=== PATIENT | male | born 1995 | race African-American/Black ===

== ENCOUNTER 2023-01-27 16:10 | Emergency (ER) | payer MEDICAID ==
[~2023-01-27] VITALS: Ht 190.5 cm; Wt 65.8 kg
[2023-01-27] MEDS ORDERED: ALBU8.5H8 INH (16:42)
[2023-01-27] MEDS ORDERED: GUAI-671 PO ×3 (16:42→19:40)
[2023-01-27] MEDS ORDERED: PRED50TA PO (16:42)
[2023-01-27] MEDS ORDERED: predniSONE 20 MG TABLET ONE (16:43)
[2023-01-27] MEDS ORDERED: IPRATROPIUM NEB FS 0.5 MG/2.5 ML AMPUL.NEB ONE (16:47)
[2023-01-27] MEDS ORDERED: ALBUTEROL FS 2.5 MG/3 ML VIAL.NEB ONE (16:47)
[2023-01-27 16:52] VITALS: O2SAT 98
[2023-01-27] MEDS ORDERED: ONDANSETRON 4 MG TAB.RAPDIS ONE (16:59)
[2023-01-27] MEDS ORDERED: ALBUTEROL FS 2.5 MG/3 ML VIAL.NEB NEB ONE (17:00)
[2023-01-27] MEDS ORDERED: IPRATROPIUM NEB FS 0.5 MG/2.5 ML AMPUL.NEB NEB ONE (17:00)
[2023-01-27] MEDS ORDERED: ONDANSETRON 4 MG TAB.RAPDIS SL ONE (17:00)
[2023-01-27] MEDS ORDERED: predniSONE 20 MG TABLET PO ONE (17:00)
[2023-01-27 17:03] VITALS: O2SAT 100
[2023-01-27 17:10] VITALS: BP 110/81; TEMP 98.7; O2SAT 100
== END 2023-01-27 17:10 | disposition home or self-care (01) ==
LOC: ER 16:15
DX: J20.9 Acute bronchitis, unspecified (principal)
CPT/HCPCS: 99283; 94799; 94640; J7512; Q0162

== ENCOUNTER 2024-03-21 13:22 | Emergency (ER) | payer MEDICAID ==
[~2024-03-21] VITALS: Ht 190.5 cm; Wt 70.3 kg
[~2024-03-21 13:22] MED LIST: ALBU8.5H8 INH; GUAI-671 PO; PRED50TA PO
[2024-03-21 13:59] VITALS: BP 116/81; TEMP 97.9
[2024-03-21] MEDS ORDERED: CLOT15CR27 TP (15:52)
[2024-03-21] MEDS ORDERED: dexaMETHasone SOD PHOSPHATE 1 ML ONE (15:57)
[2024-03-21] MEDS: dexaMETHasone SOD PHOSPHATE 4 MG/ML VIAL IM ONE (16:02)
[2024-03-21 16:03] VITALS: O2SAT 99
== END 2024-03-21 16:04 | disposition home or self-care (01) ==
LOC: ER 13:22
DX: R21 Rash and other nonspecific skin eruption (principal); B35.6 Tinea cruris; R11.2 Nausea with vomiting, unspecified; Z65.3 Problems related to other legal circumstances; Z79.52 Long term (current) use of systemic steroids
CPT/HCPCS: 99283; 96372; J1100

== ENCOUNTER 2024-11-27 22:28 | Emergency (ER) | payer MEDICAID ==
[~2024-11-27] VITALS: Ht 180.3 cm; Wt 69.9 kg
[~2024-11-27 22:28] MED LIST changes: +CLOT15CR27 TP
[2024-11-28] MEDS ORDERED: IBUPROFEN 400 MG TABLET ONE (00:17)
[2024-11-28] MEDS ORDERED: IBUP-1957 PO (00:18)
[2024-11-28] MEDS: IBUPROFEN 400 MG TABLET PO ONE (00:18)
[2024-11-28 01:01] VITALS: BP 128/70; TEMP 98.2; O2SAT 97
== END 2024-11-28 01:00 | disposition home or self-care (01) ==
LOC: ER 22:33
DX: S13.4XXA Sprain of ligaments of cervical spine, initial encounter (principal); S23.3XXA Sprain of ligaments of thoracic spine, initial encounter; S33.8XXA Sprain of other parts of lumbar spine and pelvis, initial encounter; S39.012A Strain of muscle, fascia and tendon of lower back, initial encounter; F12.10 Cannabis abuse, uncomplicated; M54.2 Cervicalgia; Z79.1 Long term (current) use of non-steroidal anti-inflammatories (NSAID); Z79.52 Long term (current) use of systemic steroids; V43.52XA Car driver injured in collision with other type car in traffic accident, initial encounter; Y93.89 Activity, other specified; Y92.410 Unspecified street and highway as the place of occurrence of the external cause; Y99.8 Other external cause status
CPT/HCPCS: 72125-TC; 72128-TC; 72131-TC